=== PATIENT | male | born 1990 | race Caucasian/White ===

== ENCOUNTER 2020-06-20 03:59 | Emergency (ER) | payer SELFPAY ==
[~2020-06-20] VITALS: Wt 81.6 kg
[~2020-06-20 03:59] MED LIST: ALBUTEROL0.09 MG/A2 IH; ANAPROX DS550 MG PO; AUGMENTIN 875 M1 TAB PO; MOTRIN400 MG PO; NKHM; Nizoral 2%15 GM PO; VICODIN 500 MG-1 TAB PO; ZITHROMAX Z PA250 MG PO; ZOFRAN ODT8 MG PO; Zofran4 MG PO
[2020-06-20 04:08] VITALS: BP 154/84
[2020-06-20] MEDS ORDERED: AUGMENTIN 875875 MG PO (04:43)
== END 2020-06-20 05:20 | disposition home or self-care (01) ==
LOC: ED 03:59
DX: S61.411A Laceration without foreign body of right hand, initial encounter (principal); F17.200 Nicotine dependence, unspecified, uncomplicated; W54.0XXA Bitten by dog, initial encounter; Y93.89 Activity, other specified; Y92.098 Other place in other non-institutional residence as the place of occurrence of the external cause; Y99.8 Other external cause status